=== PATIENT | female | born 1985 ===

== ENCOUNTER 2024-01-31 12:37 | Outpatient (CLI) | payer OTHER, SELFPAY ==
--- NOTE | ~2024-01-31 | MM_ITS ---
EXAMINATION: MM screening eliz BI w roxy HISTORY: Screening mammogram TECHNIQUE: Craniocaudal and mediolateral oblique 3-D tomosynthesis images were obtained and synthetic 2-D images were generated. CAD analysis was submitted and interpreted. COMPARISON: No prior mammogram is available for comparison at this institution. BREAST PARENCHYMAL COMPOSITION: The breasts are heterogeneously dense, which may obscure small masses . FINDINGS: There is fibroglandular asymmetry. There is a prominent calcified fibroadenoma in the upper mid right breast. There is no evidence of suspicious mass, calcification, or architectural distortio n to suggest malignancy in either breast. IMPRESSION: 1. Benign finding. No mammographic evidence of malignancy. 2. Recommend routine screening mammography in one year. BI-RADS Category 2: Benign finding(s). Reviewed, dictated and finalized at location A.
== END 2024-01-31 12:38 ==
PROVIDERS: PCP Internal Medicine; Visit Provider Internal Medicine
DX: Z12.31 Encounter for screening mammogram for malignant neoplasm of breast (principal)
CPT/HCPCS: 77063; 77067